=== PATIENT | male | born 1975 | race Caucasian/White ===

== ENCOUNTER 2022-08-21 09:20 | Emergency (ER) | payer BC, SELFPAY ==
[2022-08-21 09:31] VITALS: BP 134/93; PULSE 65; RESP 18; O2SAT 98
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
== END 2022-08-21 10:16 | disposition home or self-care (01) ==
LOC: ER 10:16
PROVIDERS: Emergency Provider Physician Assistant
DX: M79.601 Pain in right arm (principal); G56.21 Lesion of ulnar nerve, right upper limb; M62.838 Other muscle spasm
CPT/HCPCS: 99281; 99282